=== PATIENT | female | born 2000 | race Hispanic/Latino ===

== ENCOUNTER 2020-02-29 12:47 | Emergency (ER) | payer OTHER ==
[~2020-02-29] VITALS: Ht 152.4 cm; Wt 63.1 kg
[2020-02-29] MEDS ORDERED: NS 500 ML IV ONE (13:15)
[2020-02-29] MEDS ORDERED: KETOROLAC 30 MG/ML 1ML VIAL IV ONE (13:15)
[2020-02-29 13:18] LABS: BASO % 0.3 % (0.0-1.0); EOS # 0.1 10^3/uL (0.0-0.5); EOS % 0.6 % (0.0-3.0); HEMOGLOBIN 12.7 g/dl (12.0-15.5); LYMPH # 1.7 10^3/uL (1.5-5.0); LYMPH % 16.7 % (24.0-44.0); MEAN CORPUSCULAR HEMOGLOBIN 28.7 pg (27.0-33.0); MEAN CORPUSCULAR HGB CONC 33.4 g/dl (32.0-36.5); MONO # 0.5 10^3/uL (0.0-0.8); MONO % 4.6 % (0.0-5.0); NEUTROPHILS # 7.8 10^3/uL (1.5-8.5); NEUTROPHILS % 77.4 % (36.0-66.0); PLATELET COUNT, AUTOMATED 336 10^3/uL (150-450); RED BLOOD COUNT 4.42 10^6/uL (4.00-5.40); WHITE BLOOD COUNT 10.1 10^3/uL (4.0-10.0)
[2020-02-29 13:41] LABS: ALBUMIN 3.6 GM/DL (3.2-5.2); ALT/SGPT 24 U/L (12-78); BILIRUBIN,TOTAL 0.7 MG/DL (0.2-1.0); BLOOD UREA NITROGEN 12 MG/DL (7-18); CALCIUM LEVEL 8.8 MG/DL (8.5-10.1); CARBON DIOXIDE LEVEL 26 MEQ/L (21-32); CHLORIDE LEVEL 107 MEQ/L (98-107); CREATININE FOR GFR 0.66 MG/DL (0.55-1.30); GLUCOSE, FASTING 97 MG/DL (70-100); POTASSIUM SERUM 4.1 MEQ/L (3.5-5.1); SODIUM LEVEL 140 MEQ/L (136-145); TOTAL PROTEIN 7.2 GM/DL (6.4-8.2)
--- NOTE | 2020-02-29 14:02 | REP ---
CT abdomen and pelvis without IV or oral contrast: Renal stone protocol. History: Dysuria and right-sided flank pain. No comparison imaging. 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 Normal bowel gas pattern. The lung bases are clear on axial CT images. The liver and the spleen are normal in size and homogeneous in texture. No abnormalities noted in the gallbladder or the pancreas. No adrenal abnormality is seen. No retroperitoneal mass or adenopathy is seen. The kidneys are morphologically intact without evidence of hydronephrosis or intrarenal calculus. A normal appendix is seen in the right lower quadrant. No abdominal wall defect is seen. There is diffuse mild bladder wall thickening and there is ania vesical stranding in the fat surrounding the urinary bladder. This implies inflammation consistent with cystitis. There are phleboliths in the pelvis on the left. No uterine or ovarian abnormality is appreciated. Impression: Diffuse ania vesical fat streaking and mural thickening of the urinary bladder; question cystitis. No hydronephrosis or urinary calculus disease seen. Electronically Signed by Alonso Strickland MD 02/29/2020 02:55 P
[2020-02-29 14:15] VITALS: BP 128/76
[2020-02-29] MEDS ORDERED: NITROFURANTOIN (MACROBID) 100 MG CAP PO ONE (14:15)
[2020-02-29] MEDS ORDERED: MACR100C43 PO (14:15)
[2020-02-29] MEDS ORDERED: PYRI1TAB5 PO (14:16)
== END 2020-02-29 14:24 | disposition home or self-care (01) ==
LOC: M ED 12:47
DX: N30.00 Acute cystitis without hematuria (principal); B96.20 Unspecified Escherichia coli [E. coli] as the cause of diseases classified elsewhere
CPT/HCPCS: 36415; 74176; 80053; 81001; 84702; 85025; 87088; 87186; 96360; 96375; 99284; J1885

== ENCOUNTER 2020-12-21 05:49 | Emergency (ER) | payer OTHER ==
[~2020-12-21] VITALS: Ht 152.4 cm; Wt 67.2 kg
[~2020-12-21 05:49] MED LIST: MACR100C43 PO; PYRI1TAB5 PO
[2020-12-21] MEDS ORDERED: ISIB1TAB PO (06:03)
[2020-12-21] MEDS ORDERED: NS 1,000 ML IV ONE (06:30)
[2020-12-21 06:39] LABS: BASO % 0.3 % (0.0-1.0); EOS # 0.1 10^3/uL (0.0-0.5); EOS % 1.1 % (0.0-3.0); HEMATOCRIT 41.8 % (36.0-47.0); HEMOGLOBIN 13.4 g/dl (12.0-15.5); LYMPH # 2.2 10^3/uL (1.5-5.0); LYMPH % 34.5 % (24.0-44.0); MEAN CORPUSCULAR HEMOGLOBIN 28.3 pg (27.0-33.0); MEAN CORPUSCULAR HGB CONC 32.1 g/dl (32.0-36.5); MEAN CORPUSCULAR VOLUME 88.4 fl (80.0-96.0); MONO # 0.4 10^3/uL (0.0-0.8); MONO % 5.8 % (0.0-5.0); NEUTROPHILS # 3.7 10^3/uL (1.5-8.5); PLATELET COUNT, AUTOMATED 334 10^3/uL (150-450); RED BLOOD COUNT 4.73 10^6/uL (4.00-5.40); WHITE BLOOD COUNT 6.4 10^3/uL (4.0-10.0)
[2020-12-21 07:01] VITALS: O2SAT 100
[2020-12-21 07:02] LABS: ALBUMIN 3.9 GM/DL (3.2-5.2); ALT/SGPT 16 U/L (12-78); BILIRUBIN,DIRECT 0.2 MG/DL (0.0-0.2); BILIRUBIN,TOTAL 0.7 MG/DL (0.2-1.0); CK-MB VALUE MASS < 1.0 NG/ML (<3.6); CPK CREATINE PHOSPHOKINASE 79 U/L (26-192); LDH LACTATE DEHYDROGENASE 168 U/L (84-246); LIPASE 221 U/L (73-393); MB/CK RELATIVE INDEX 1.27 (< OR =4); TOTAL PROTEIN 7.4 GM/DL (6.4-8.2); TROPONIN I < 0.02 NG/ML (< 0.10)
[2020-12-21 07:03] LABS: C REACTIVE PROTEIN QUANTITATIV < 0.30 MG/DL (0.00-0.30)
--- NOTE | 2020-12-21 07:48 | REP ---
INDICATION: Coronavirus workup COMPARISON: None. TECHNIQUE: Portable AP view of the chest FINDINGS: The mediastinum and cardiac silhouette arewithin normal limits for portable technique. The lung nascimento are clear without acute consolidation, effusion, or pneumothorax. Skeletal structures are intact. IMPRESSION: No acute cardiopulmonary process appreciated. <Electronically signed by Jaime Marti > 12/21/20 [id number]
[2020-12-21] MEDS ORDERED: GI COCKTAIL 50ML BTL(HYOSCYAMINE/MAALOX/LIDOCAINE VISCOUS)(1:3:1) PO ONE (08:00)
[2020-12-21 08:36] LABS: ERYTHROCYTE SEDIMENTATION RATE 4 mm/hr (0-20)
[2020-12-21 09:00] VITALS: BP 123/73
--- NOTE | 2020-12-21 09:00 | ECGEPIP ---
[facility] - ED Test Date: 2020-12-21 Pat Name: JAMISON DAVIS Department: Room: - Gender: Female Grades 9 Through 12 Teacher: NIGHAT : 2000 Requested By: ZENA Rod Order Number: [id number] Reading MD: Margie Gr Measurements Intervals [place] Rate: 85 P: 55 LA: 138 QRS: 70 QRSD: 80 T: 36 QT: 374 QTc: 446 Interpretive Statements SINUS RHYTHM WITH SINUS ARRHYTHMIA NSTTW abnormalities NO PRIOR Electronically Signed on 12-21-2020 8:59:55 EST by Margie Gr
== END 2020-12-21 09:19 | disposition home or self-care (01) ==
LOC: M ED 05:49
DX: R09.89 Other specified symptoms and signs involving the circulatory and respiratory systems (principal); E87.6 Hypokalemia; R06.09 Other forms of dyspnea
CPT/HCPCS: 71045; 80047; 80076; 82550; 82553; 83615; 83690; 84484; 84702; 85025; 85379; 85652; 86140; 87804; 93005; 99284; U0003

== ENCOUNTER → 2021-06-15 | Outpatient (CLI) | payer OTHER ==
[~2021-06-15] MED LIST changes: +ISIB1TAB PO
--- NOTE | 2021-06-15 20:02 | REP ---
INDICATION: PAIN IN LEFT SHOULDER X 1 YEAR COMPARISON: None. TECHNIQUE: Three views left shoulder. FINDINGS: There is no evidence of acute fracture, dislocation, or intrinsic bone disease.The joint spaces are unremarkable. IMPRESSION: Negative left shoulder series. <Electronically signed by Jose Tong > 06/15/211957
== END ==
LOC: M RAD 19:28
PROVIDERS: ATTEND Physician Assistant
DX: M25.512 Pain in left shoulder (principal)

== ENCOUNTER → 2022-08-08 | Outpatient (REF) | LOC: M LABSMTC 11:52 | PROVIDERS: ATTEND Family Medicine | DX: Z20.822 Contact with and (suspected) exposure to COVID-19 (principal) ==

== ENCOUNTER → 2022-12-25 | Outpatient (CLI) | payer OTHER | LOC: M PLAIMG 15:03 | PROVIDERS: ATTEND Nurse Practitioner Family | DX: M54.50 Low back pain, unspecified (principal); M54.2 Cervicalgia ==